=== PATIENT | male | born 1990 | race Caucasian/White ===

== ENCOUNTER 2020-11-11 16:56 | Emergency (ER) | payer SELFPAY ==
[~2020-11-11] VITALS: Ht 180.3 cm; Wt 109.0 kg
[2020-11-11] MEDS ORDERED: ONDANSETRON ODT 4 MG ONE (19:39)
[2020-11-11 19:40] VITALS: BP 142/95
[2020-11-11] MEDS ORDERED: ONDANSETRON ODT 4 MG PO ONE (20:00)
[2020-11-11 20:34] LABS: ALBUMIN 4.1 g/dL (3.4-5.0); ANION GAP 10 mmol/L (5-15); BASOPHILS % (AUTO) 0 % (0-1); CALCIUM 10.4 mg/dL (8.5-10.1); CHLORIDE 105 mmol/L (98-107); EOSINOPHILS % (AUTO) 0 % (1-7); LYMPHOCYTES % (AUTO) 5 % (22-44); MEAN CORPUSCULAR HEMOGLOBIN 32.4 pg (27.5-34.5); MEAN CORPUSCULAR HGB CONC 35.1 g/dL (33.2-36.2); MEAN PLATELET VOLUME 10.1 fL (7.4-10.4); MONOCYTES % (AUTO) 7 % (2-9); NEUTROPHILS % (AUTO) 89 % (42-75); PLATELET COUNT 157 x10^3/uL (130-400); RED BLOOD COUNT 4.84 x10^6/uL (4.38-5.82); RED CELL DISTRIBUTION WIDTH 13.3 % (9.4-14.8)
[2020-11-11 20:38] LABS: ALANINE AMINOTRANSFERASE 31 U/L (12-78); ALKALINE PHOSPHATASE 68 U/L (45-117); BILIRUBIN,TOTAL 1.4 mg/dL (0.2-1.0); TOTAL PROTEIN 7.9 g/dL (6.4-8.2)
== END 2020-11-11 21:51 | disposition left against medical advice (07) ==
LOC: ED 17:00
DX: R11.2 Nausea with vomiting, unspecified (principal); Z20.822 Contact with and (suspected) exposure to COVID-19; M79.10 Myalgia, unspecified site; R50.9 Fever, unspecified; R00.0 Tachycardia, unspecified; E10.65 Type 1 diabetes mellitus with hyperglycemia
CPT/HCPCS: 36415; 80053; 83605; 83690; 85025; 87040; 99283; Q0162; U0003; U0005